=== PATIENT | male | born 1990 | race Caucasian/White ===

== ENCOUNTER 2021-07-19 12:53 | Emergency (ER) | payer SELFPAY ==
[~2021-07-19] VITALS: Ht 182.9 cm; Wt 70.3 kg
[2021-07-19 13:00] VITALS: BP 109/74
--- NOTE | 2021-07-19 13:05 | NUR ---
SEEN AND EXAMINED BY .
[2021-07-19] MEDS ORDERED: ESCI10TA PO ×2 (13:07→14:04)
[2021-07-19] MEDS ORDERED: ALPR0.255 PO ×2 (13:07→14:04)
--- NOTE | 2021-07-19 13:11 | NUR ---
Patient discharged to home in stable condition. Written and verbal after care instructions given. Patient verbalizes understanding of instruction.
== END 2021-07-19 13:15 | disposition home or self-care (01) ==
LOC: ER 12:57
DX: F41.9 Anxiety disorder, unspecified (principal); F32.A Depression, unspecified; Z60.2 Problems related to living alone; Z79.899 Other long term (current) drug therapy